=== PATIENT | female | born 1990 | race African-American/Black ===

== ENCOUNTER 2017-04-19 21:54 | Emergency (ER) | payer OTHER ==
[~2017-04-19] VITALS: Ht 165.1 cm; Wt 87.5 kg
[~2017-04-19 21:54] MED LIST: AMOXICILLIN875 MG PO; MOTRIN600 MG PO; NORCO 5/3251 TABLET PO
[2017-04-19] MEDS ORDERED: NAPROSYN500 MG PO (22:34)
[2017-04-19] MEDS ORDERED: AMOXICILLIN500 MG PO (22:35)
[2017-04-19 23:02] VITALS: BP 124/87
== END 2017-04-19 23:02 | disposition home or self-care (01) ==
LOC: EME 21:54
PROC: 3E0T3BZ Introduction of Anesthetic Agent into Peripheral Nerves and Plexi, Percutaneous Approach (ICD-10-PCS; principal; 2017-04-19)
DX: K08.89 Other specified disorders of teeth and supporting structures (principal)
CPT/HCPCS: 99281; 99283